=== PATIENT | female | born 1945 | race Caucasian/White ===

== ENCOUNTER 2018-08-21 10:01 | Observation (INO) | payer OTHER ==
[~2018-08-21] VITALS: Ht 165.1 cm; Wt 95.3 kg
[~2018-08-21 10:01] MED LIST: AMARYL2 MG PO; GLUCOPHAGE1000 MG PO; JANUVIA100 MG PO; LISINOPRIL20 MG PO; PRAVACHOL40 MG PO; VITAMIN D5000 UNIT PO
[2018-08-21 11:00] LABS: HEMATOCRIT 32.5 % (37.0-47.0); HEMOGLOBIN 10.5 gm/dL (12.0-15.0); MCH 24.4 pg (26.0-34.0); MCHC 32.2 g/dL (28.0-37.0); MCV 75.9 fL (80.0-100.0); MPV 8.2 fl. (7.2-11.1); RBC 4.29 mil/uL (4.20-5.00); RDW-CV 15.3 % (10.5-14.5); WBC 6.8 thou/uL (4.0-11.0)
[2018-08-21 11:09] LABS: CALCIUM 8.9 mg/dL (8.5-10.1); CREATININE 1.1 mg/dL (0.6-1.3); POTASSIUM 4.7 mmol/L (3.5-5.1)
[2018-08-21 11:14] LABS: ALBUMIN 3.4 g/dL (3.4-5.0); TOTAL BILIRUBIN 0.3 mg/dL (<0.1-1.0); TOTAL PROTEIN 7.6 g/dL (6.4-8.2)
[2018-08-21 12:13] VITALS: BP 140/70
--- NOTE | 2018-08-21 15:45 | EKG ---
[place] [id number] ELECTROCARDIOGRAM REPORT Name: EILEEN CHUNGNA SURENDRA Room: [facility]#: [id number] Admission: 08/21/18 Attend Phys: Brad Thompson II Discharge: Date of : 47 Report #: [id number] THIS REPORT FOR: //name// [facility] Test Date: 2018-08-21 Test Time: 10:49:01 Pat Name: JAMES CHUNG Department: Room: Gender: F Dermatology Physician: : [id number] Requested By: Brad Thompson Order Number: [id number] Reading MD: Waylon Ren Measurements Intervals [place] Rate: 68 P: 32 FL: 161 QRS: -28 QRSD: 87 T: 16 QT: 373 QTc: 397 Interpretive Statements Sinus rhythm Borderline left axis deviation No previous ECG available for comparison Electronically Signed On 08-21-2018 15:45:21 CDT by Waylon Rne [email or web address] <ELECTRONICALLY SIGNED> By: Waylon Ren MD, [facility] 08/21/18 1545 1049 [id number] Waylon Ren MD, FAC /EPI
[2018-08-21 16:18] VITALS: BP 152/61
--- NOTE | 2018-08-21 16:24 | NUR ---
PT ADMITTED TO UNIT WITH ORIF RT WRIST. PT ALERT AND ORIENTED. ON 3 LITERS O2 NASAL CANNULA WITH CAPNO. PULSES 2+. LUNGS CLEAR. PT VOMITED WITH MOVEMENT. PAIN 2/. SPLINT TO RT WRIST C/D/I. PT RESTING IN ROOM. FALL RISK PRECAUTIONS IN PLACE. HOURLY ROUNDING COMPLETED.
--- NOTE | 2018-08-21 17:08 | NUR ---
PT ALERT AND ORIENTED. PT RESTING IN ROOM. PT TRYING DINNER. PT HAS NOT VOIDED AT THIS TIME. FALL RISK PRECAUTIONS IN PLACE. HOURLY ROUNDING COMPLETED. WILL CONTINUE TO MONITOR.
[2018-08-21 20:00] VITALS: BP 138/78
[2018-08-22] VITALS: BP 154/65
--- NOTE | 2018-08-22 03:24 | NUR ---
ASSUMED CARE AT START OF SHIFT PT UP TO BATHROOM WITH MIN ASSIST PAIN MEDICATION GIVEN X1 TOLERATED WELL, SLEPT QUIELTY THROUGHOUT HOURLY ROUNDS, NO CONCERNS VOICED, WILL CONINTUE WITH CURRENT PLAN OF CARE . FINGER TIPS WARM TO TOUCH AND PT ABLE TO WIGGLE WIHTOUT DIFF.
[2018-08-22 04:00] VITALS: BP 145/60
[2018-08-22 07:18] VITALS: BP 145/60
[2018-08-22] MEDS ORDERED: NORCO 5-325 TA1 EAC1 PO (07:23)
[2018-08-22 08:25] VITALS: BP 153/73
[2018-08-22 13:00] VITALS: BP 145/60
--- NOTE | 2018-08-22 13:00 | NUR ---
PT GIVEN DISCHARGE INFORMATION, CARE NOTES, AND PRESCRIPTIONS GIVEN. IV REMOVED. PT LEFT TO HOME WITH SELF CARE. FALL RISK PRECAUTIONS IN PLACE. HOURLY ROUNDING COMPLETED.
--- NOTE | 2018-08-22 22:24 | OP ---
[address] [address] OPERATIVE REPORT Name: JAMES CHUNG Room: [address] [place]#: [id number] Admission: 08/21/18 Attend Phys: Brad Thompson II Discharge: 08/22/18 Date of : 47 Report #: [id number] THIS REPORT FOR: //name// CC: RAIN physician/PCP Brad Thompson DATE OF SERVICE: 08/21/2018 PREOPERATIVE DIAGNOSIS: Right distal radius fracture, greater than 3 parts. POSTOPERATIVE DIAGNOSIS: Right distal radius fracture, greater than 3 parts. PROCEDURE: Open reduction and internal fixation of right distal radius fracture, greater than 3 parts. SURGEON: Brad Thompson II, DO. DINING ROOM HOSTESS: KATHERINE Lynne ANESTHESIA: LMA. ESTIMATED BLOOD LOSS: Minimal. ANTIBIOTICS: Per operative record. DRAINS: None. COMPLICATIONS: None. CONDITION: Stable to recovery room. IMPLANTS: Seda distal radius plate and appropriate locking and nonlocking screws. DESCRIPTION OF PROCEDURE: The patient was taken to the operative suite and placed supine on the operative table, given appropriate anesthesia. The patient had a well-padded tourniquet applied to the upper extremity and inflated to 300 mmHg after Esmarch exsanguination for the duration of the procedure. The arm was sterilely prepped and draped. Surgery began by a midline incision over the flexor carpi radialis tendon. This was carried down to the subcutaneous tissues. The tendons were then retracted radially and the pronator was reflected off of the volar aspect of the radius. The fracture was then evaluated and was found to have significant dorsal angulation. This was reduced with open means utilizing [place] and elevator. This was checked with C-arm for appropriate alignment. The plate was then affixed to the bone utilizing the sliding hole. This was then taken to the appropriate [place] [address] OPERATIVE REPORT Name: JAMES CHUNG Room: [address] [place]#: [id number] Admission: 08/21/18 Attend Phys: Brad Thompson II Discharge: 08/22/18 Date of : 47 Report #: [id number] fracture was reduced and held with K-wire and appropriate locking and nonlocking screws then applied to the plate and bone to allow for appropriate fixation and near anatomic alignment. Final images were taken with AP and lateral directions with excellent anatomic fixation of the distal radius. The wound was then copiously irrigated. The pronator was reflected back over the tray, transferred over the plate and secured utilizing a 2-0 Vicryl. The skin was closed with 2-0 Vicryl and a running Monocryl stitch. Dermabond and sterile dressing were applied as well as a volar splint. The patient was transported to the recovery room in stable condition. Counts were correct throughout the procedure. <ELECTRONICALLY SIGNED> By: Brad Thompson II, DO 08/22/18 2224 [id number] Thompson II, DO /nt
== END 2018-08-22 13:01 | disposition home or self-care (01) ==
LOC: M.SUR 10:01 → M.ORTHSURG 15:43
PROVIDERS: ADMIT Orthopaedic Surgery
DX: S52.501A Unspecified fracture of the lower end of right radius, initial encounter for closed fracture (principal); X58.XXXA Exposure to other specified factors, initial encounter; Y93.9 Activity, unspecified; Y92.89 Other specified places as the place of occurrence of the external cause; Y99.9 Unspecified external cause status